=== PATIENT | male | born 1935 | race Caucasian/White ===

== ENCOUNTER 2016-08-23 19:16 | Emergency (ER) | payer MEDICARE, OTHER ==
[2016-08-23] MEDS ORDERED: TETANUS/DIPHTHERIA/PERTUSSIS 0.5 ML SYRINGE IM ONE ×2 (19:24→19:27)
[2016-08-23] MEDS ORDERED: LIDOCAINE MPF 1%-EPI 1:200000 30 ML VIAL ONE (19:46)
--- NOTE | 2016-08-23 19:56 | ED Physician Documentation ---
PD HPI LOWER EXT INJURY - Stated complaint Stated Complaint: R KNEE LAC - Chief complaint Chief Complaint: Ext Problem - History obtained from History obtained from: Patient - History of Present Illness PD HPI LOW EXT INJURY LOCATION: Right (80-year-old gentleman visiting from out of town hit himself with a blunt instrument to the right knee just prior to arrival and has a laceration with persistent bleeding. Tetanus is not up-to- date.) Review of Systems Constitutional: reports: Reviewed and negative Throat: reports: Reviewed and negative Cardiac: reports: Reviewed and negative PD PAST MEDICAL HISTORY - Past Medical History Past Medical History: Yes Cardiovascular: Hypertension, Coronary artery disease - Past Surgical History Past Surgical History: Yes Ortho: Knee replacement Cardiovascular: Coronary stent - Present Medications Home Medications: Ambulatory Orders Medication Instructions Recorded Confirmed Aspirin [Aspirin EC] 81 mg PO DAILY 08/23/16 08/23/16 Atenolol 15 mg PO DAILY 08/23/16 08/23/16 Lisinopril 5 mg PO DAILY 08/23/16 08/23/16 - Allergies Allergies/Adverse Reactions: Allergies Allergy/AdvReac Type Severity Reaction Status Date / Time No Known Drug Allergies Allergy Verified 08/23/16 19:22 - Social History Does the pt smoke?: No Smoking Status: Never smoker - Immunizations Immunizations are current?: No Immunizations: TDAP >10years/unknown PD ED PE NORMAL - Vitals Vital signs reviewed: Yes - General General: Alert and oriented X 3, No acute distress - Extremities Extremities: Other (On the anterolateral, distal right knee there is a shallow but actively bleeding 2 cm laceration that does not involve deep structures.) - Neuro Neuro: Alert and oriented X 3, Normal speech Results - Vitals Vitals: Vital Signs - 24 hr 08/23/16 19:26 Temperature 36.5 C Heart Rate 61 Respiratory 18 Rate Blood Pressure 160/67 H O2 Saturation 98 Oxygen O2 Source Room air Procedures - Laceration (location) Right knee Length in cm: 2 Wound type: Linear Neurovascular status: Sensory intact, Motor intact, Vascular intact Anesthesia: Lidocaine 1% with epi Wound Preparation: Betadine, Irrigated copiously NS Skin layer closure: Nylon, Running, Size #-0 - enter number (3-0) Other: Patient tolerated well, Dressing applied, Tetanus booster given Complexity: Simple Departure - Departure Disposition: 01 Home, Self Care Clinical Impression: Laceration of right leg excluding thigh Qualifiers: Encounter type: initial encounter Qualified Code(s): S81.811A - Laceration without foreign body, right lower leg, initial encounter Condition: Good Record reviewed to determine appropriate education?: Yes Instructions: ED Laceration All Comments: Come back for any signs of infection which would include: Redness, swelling, drainage, increased pain, or fevers. Follow-up with your physician in 14 days for suture removal. Your blood pressure was elevated today on check into the emergency department. This does not mean that you have hypertension, it is a common phenomenon to come to the emergency department and have elevated blood pressure. I recommend that she see her primary care physician within the week to have it rechecked when you are feeling better.
[2016-08-23 20:15] VITALS: BP 119/63
== END 2016-08-23 20:14 | disposition home or self-care (01) ==
LOC: ED 19:16
DX: S81.011A Laceration without foreign body, right knee, initial encounter (principal); W22.8XXA Striking against or struck by other objects, initial encounter; Z23 Encounter for immunization; I10 Essential (primary) hypertension; I25.10 Atherosclerotic heart disease of native coronary artery without angina pectoris; Z95.5 Presence of coronary angioplasty implant and graft; Z79.82 Long term (current) use of aspirin
CPT/HCPCS: 12001; 90471; 99283